=== PATIENT | female | born 1990 | race Caucasian/White ===

== ENCOUNTER 2017-03-01 05:42 | Outpatient (CLI) | payer OTHER ==
[~2017-03-01] VITALS: Ht 177.8 cm; Wt 149.7 kg
[2017-03-01] MEDS ORDERED: LISD60CA PO (11:13)
[2017-03-01] MEDS ORDERED: NALT1TAB PO (11:13)
[2017-03-01] MEDS ORDERED: NORG1TAB7 PO (11:13)
--- NOTE | 2017-03-01 12:05 | HISTORY AND PHYSICAL ---
DATE OF SERVICE: 03/01/2017 COLONOSCOPY HISTORY AND PHYSICAL HISTORY OF PRESENT ILLNESS: The patient is a 26-year-old white female who for the past 2 to 3 weeks has noted intermittent bright red blood per rectum. Initially, this was associated with constipation and she was visiting relatives and followed the passage of a hard stool. After coming home, increasing fluids for its fiber and a stool softener too, her constipation has resolved, but she is still noting intermittent bright red blood per rectum, a small volume. Initially, there was pain with the passage of stool, but this has abated. She has had no chills or fever and denies abdominal pain. She has been on Contrave for a month, which is likely also aggravated constipation. She has been noticing weight loss since the initiation of Contrave and also was taking Vyvanse for control of binge eating and had been losing a little bit of weight since initiating this as I recall this summer. FAMILY HISTORY: Pertinent for mother who was noted to have multiple colon polyps diagnosed on her first screening colonoscopy at the age of 50. She is not aware of any family history for colon cancer. Mother is living at the age of 53. Father is living at the age of 60 and has had problems with reflux to the point of requiring surgery. PAST MEDICAL HISTORY: Other than obesity has been unremarkable. PAST SURGICAL HISTORY: She had right meniscal tear repair 6 years ago, reporting no other past history. SOCIAL HISTORY: She works at [employer] in the [employer] office. She has no past smoking or drinking history. REVIEW OF SYSTEMS: CONSTITUTIONAL: She denies chills, fever or fatigue, but has had at least five-pound weight loss over the past month since initiating Contrave. CARDIAC: She denies any past history of chest pain, has stable dyspnea on exertion. Denies syncope or presyncope. CHEST: She denies chest pain, wheezing, shortness of breath, or cough. GENITOURINARY: She denies flank pain, dysuria or increased frequency. GASTROINTESTINAL: Refer to HPI. PHYSICAL EXAMINATION: GENERAL: Reveals a pleasant white female who weighs 333 pounds. VITAL SIGNS: Blood pressure 118/70, heart rate was 78 and regular. HEENT: Unremarkable. She is a Mallampati class 3 oropharyngeal configuration. PHARYNX: Reveals no evidence for erythema or exudate. CHEST: Clear. CARDIOVASCULAR: Reveals a regular rate and rhythm without murmur, S3 or S4. ABDOMEN: Obese, soft, supple, nontender. No mass or organomegaly is noted. Bowel sounds are positive in all four quadrants. EXTREMITIES: Reveal no cyanosis, clubbing or edema. ASSESSMENT AND PLAN: For further investigation of bright red blood per rectum that has persisted despite resolution of pain with stool passage and resolution of constipation, she is set up for colonoscopy on the . She is deemed to be of slightly higher than average risk for neoplasia, considering that her mother had reported multiple colon polyps on her first screening colonoscopy at the age of 50. I thank you for the referral of this pleasant lady. Sincerely, Job ID: [id number] DocumentID: [id number] Dictated Date: 03/01/2017 09:53:46 Bank Teller Date: 03/01/2017 11:36:25 Dictated By: ELIA BRANHAM MD MTDD
== END 2017-03-01 11:16 ==
LOC: PREOP 05:42
PROVIDERS: ATTEND Internal Medicine
DX: Z01.818 Encounter for other preprocedural examination (principal); K62.5 Hemorrhage of anus and rectum

== ENCOUNTER 2017-03-02 08:06 | Day surgery (SDC) | payer BC, OTHER ==
[~2017-03-02] VITALS: Ht 177.8 cm; Wt 149.7 kg
[~2017-03-02 08:06] MED LIST: LISD60CA PO; NALT1TAB PO; NORG1TAB7 PO
[2017-03-02 08:20] VITALS: BP 119/94
--- NOTE | 2017-03-02 08:34 | Pre-Op Note & Conscious Sedat ---
Pre-Operative Progress Note H&P Reviewed The H&P was reviewed, patient examined and no changes noted. Date H&P Reviewed: Mar 02, 2017 Time H&P Reviewed: 08:33 Conscious Sedation Pre-Proced ASA Class: 2 Airway Mallampati Classification: ([place] appropriate class) I. II. III, IV Lungs Heart ASA score ASA 1: a normal healthy patient ASA 2: a patient with a mild systemic disease (mid diabetes, controlled hypertension, obesity ASA 3: a patient with a severe systemic disease that limits activity (angina , COPD, prior Myocardial infarction) ASA 4: a patient with an incapacitating disease that is a constant threat to life (CHF, renal failure) ASA 5: a moribund patient not expected to survive 24 hrs. (ruptured aneurysm) ASA 6: a declared brain patient whose organs are being harvested. For emergent operations, add the letter E after the classification Grade 2 Sedation Plan: Analgesia, Amnesia, Plan communicated to team members, Discussed options with patient/fam, Discussed risks with patient/fam Note The patient is an appropriate candidate to undergo the planned procedure, sedation, and anesthesia. The patient immediately re-assessed prior to indication. ELIA BRANHAM MD Mar 02, 2017 08:34
[2017-03-02] MEDS ORDERED: 1/2 NS IV SOLUTION 1,000 ML IV STA (08:50)
[2017-03-02] MEDS ORDERED: 1/2 NS IV SOLUTION 1,000 ML IV ONE (08:59)
[2017-03-02] MEDS ORDERED: LIDOCAINE JELLY 2% (XYLOCAINE) 5 ML TUBE MM PRN (09:00)
[2017-03-02] MEDS ORDERED: LIDOCAINE JELLY 2% (XYLOCAINE) 5 ML TUBE ONE (09:54)
[2017-03-02] MEDS ORDERED: fentaNYL INJECTION 100 MCG/2 ML AMP ONE ×2 (09:54→10:17)
[2017-03-02] MEDS ORDERED: MIDAZOLAM 2 MG/2 ML (VERSED) VIAL ONE ×4 (09:54→10:17)
[2017-03-02] MEDS: fentaNYL INJECTION 100 MCG/2 ML AMP IVP PRN ×2 (10:02→10:10)
[2017-03-02] MEDS: MIDAZOLAM 2 MG/2 ML (VERSED) VIAL IVP PRN ×3 (10:05→10:18)
[2017-03-02 11:05] VITALS: BP 127/88
[2017-03-02 11:40] VITALS: BP 127/88
[2017-03-02 11:41] VITALS: BP 122/78
--- NOTE | 2017-03-02 13:15 | OPERATIVE REPORT ---
DATE OF SERVICE: COLONOSCOPY SUMMARY INDICATION FOR PROCEDURE: Bright red blood per rectum. FAMILY HISTORY: Colon polyps. The patient was placed in the left lateral decubitus position. Prior to undergoing colonoscopy, digital rectal evaluation was performed. Anal sphincter tone was normal and the perianal reflex is intact. There is slight area of roughness in the anal canal at the 1 o'clock position. No other abnormalities were noted visual inspection anal canal or distal rectal vault. The colonoscope was then inserted into the rectum and under direct visualization advanced to the cecum. The cecum was identified by identification of the ileocecal valve and cecal strap and the appendiceal orifice. Photographic documentation was obtained. A careful inspection was made as the colonoscope was withdrawn. FINDINGS: In the anal canal at 1 o'clock position, there appeared to be a small amount of scarring. There was no evidence for recurrent fissure and no evidence for internal or external hemorrhoids were noted. The rectum, sigmoid colon, descending colon, splenic flexure and transverse colon were unremarkable. A diminutive 3 mm sessile polyp was noted at hepatic flexure. It was photographed and biopsied and ablated with no subsequent blood loss. The remainder of the ascending colon and cecum were unremarkable. ASSESSMENT: 1. Likely healed anal fissure at the 1 o'clock position, the most likely cause of this patient's previous symptoms and rectal bleeding. She predominantly has constipation during her travels so discussed taking stool softeners and trying to maintain hydration and increasing fiber in her diet, especially during travels. 2. Diminutive polyp was removed hepatic flexure. We will await on histopathology report. If it is hyperplastic polyp, would just advocate consideration for repeat screening colonoscopy in 10 years considering family history of relatively early colon polyps. I thank you for the referral of this pleasant lady, reassured by today's findings. Sincerely, Job ID: [id number] DocumentID: [id number] Dictated Date: 03/02/2017 10:51:01 Software Team Leader Date: 03/02/2017 13:15:13 Dictated By: MD MOE SANCHEZ
== END 2017-03-02 11:40 | disposition home or self-care (01) ==
LOC: ENDO 08:06
PROVIDERS: ATTEND Internal Medicine
DX: D12.3 Benign neoplasm of transverse colon (principal); K62.5 Hemorrhage of anus and rectum; K59.00 Constipation, unspecified; Z83.71 Family history of colonic polyps; E66.9 Obesity, unspecified; Z68.42 Body mass index [BMI] 45.0-49.9, adult
CPT/HCPCS: 84703

== ENCOUNTER → 2018-01-14 | Outpatient (CLI) | payer OTHER ==
--- NOTE | 2018-01-14 12:50 | Diagnostic Imaging Report ---
EXAMINATION: Right knee at 11:02 a.m. INDICATION: Injury, knee pain. Three views were obtained. There are no prior studies available for comparison. FINDINGS: There is no fracture, dislocation, or acute bony abnormality evident. The knee joint is fairly well maintained. However, there does seem to be a ntrog-xx-nepiphub joint effusion present. The soft tissues are otherwise unremarkable. IMPRESSION: 1. There is no evidence for an acute bony abnormality. 2. There is a zwrlt-xr-ghkgnnjn joint effusion present. 3. If there is clinical concern regarding internal derangement, then MRI would be recommended for additional study. Dictated by: Dictated on workstation # [id number]
== END ==
LOC: RAD 10:26
PROVIDERS: ATTEND Nurse Practitioner Family
DX: S89.91XA Unspecified injury of right lower leg, initial encounter (principal)
CPT/HCPCS: 73562